=== PATIENT | female | born 1940 | race Caucasian/White ===

== ENCOUNTER 2025-04-01 13:35 | Inpatient (IN) | payer MEDICARE, OTHER ==
[~2025-04-01] VITALS: Ht 170.2 cm; Wt 99.3 kg
[2025-04-01 13:36] VITALS: BP 154/9; TEMP 97.5
[2025-04-01 14:01] VITALS: BP 154/9; TEMP 97.5
[2025-04-01] MEDS ORDERED: ACET325T53 PO (19:06)
[2025-04-01] MEDS ORDERED: APIX5TAB PO (19:06)
[2025-04-01] MEDS ORDERED: ATOR10TA PO (19:07)
[2025-04-01] MEDS ORDERED: ASPI-1169 PO (19:07)
[2025-04-01] MEDS ORDERED: CARV6.252 PO (19:08)
[2025-04-01] MEDS ORDERED: INSU100V28 SQ (19:09)
[2025-04-01] MEDS ORDERED: MAG355OR18 PO (19:10)
[2025-04-01] MEDS ORDERED: MAGN400O6 PO (19:10)
[2025-04-01] MEDS ORDERED: PANT40TA49 PO (19:11)
[2025-04-01] MEDS ORDERED: Z-GUARD TOP (19:11)
[2025-04-01] MEDS ORDERED: MAGNESIUM HYDROXIDE 30 ML LIQUID UDC PO PRN (19:30)
[2025-04-01] MEDS ORDERED: MAG HYDROX/AL HYDROX/SIMETH 30 ML LIQUID UDC PO PRN (19:30)
[2025-04-01] MEDS ORDERED: Medication Not On Formulary EA ([Z-Guard] 1 APPLIC) TOP PRN (19:30)
[2025-04-01] MEDS ORDERED: ACETAMINOPHEN 325 MG TABLET-SA PATIENTS-PAIN ONLY PO PRN (19:30)
[2025-04-01 20:00] LABS: PLATELET COUNT (AUTO) 373 K/uL (179-408); RED BLOOD CELL COUNT(AUTO) 4.49 MIL/uL (3.63-4.92); RED CELL DISTRIBUTION WIDTH 15.2 % (12.3-17.7); WHITE BLOOD COUNT (AUTO) 9.4 K/uL (3.8-11.8)
[2025-04-01 20:27] LABS: CREATININE 1.0 mg/dL (0.6-1.3); SODIUM SERUM 139 mmol/L (136-145); UREA NITROGEN, BLOOD 23 mg/dL (7-18)
[2025-04-01 20:33] LABS: ASPARTATE AMINOTRANSFERASE 13 U/L (15-37); TOTAL PROTEIN, SERUM 6.3 g/dL (6.4-8.2)
[2025-04-01 20:58] VITALS: BP 137/83; TEMP 98.1; O2SAT 93
[2025-04-01] MEDS: ATORVASTATIN 10 MG TABLET PO SCH (21:00)
[2025-04-01] MEDS: CARVEDILOL 6.25 MG TABLET PO SCH (21:00)
[2025-04-02] MEDS: ACETAMINOPHEN 325 MG TABLET PO PRN (04:37)
[2025-04-02] MEDS ORDERED: REMEDY ESSENTIAL ZINC PASTE 113 GM TP PRN (06:30)
[2025-04-02 06:33] VITALS: BP 115/58; TEMP 97.8; O2SAT 92
[2025-04-02] MEDS: PANTOPRAZOLE SODIUM 40 MG TABLET.DR PO SCH (09:45)
[2025-04-02] MEDS: ASPIRIN 81 MG TAB.CHEW PO SCH (09:46)
[2025-04-02] MEDS: APIXABAN 5 MG TABLET PO SCH (09:49)
[2025-04-02] MEDS ORDERED: FERR-56 PO (10:47)
[2025-04-02] MEDS ORDERED: DONE10TA44 PO (10:47)
[2025-04-02] MEDS ORDERED: SITA1TAB2 PO (10:47)
[2025-04-02] MEDS ORDERED: DAPA10TA PO (10:47)
[2025-04-02] MEDS ORDERED: MISCELLANEOUS MED XX PRN (11:15)
[2025-04-02] MEDS: FERROUS SULFATE 325 MG TABEC PO SCH (12:08)
[2025-04-02] MEDS: DAPAGLIFLOZIN PROPANEDIOL 10 MG TABLET PO SCH (12:08)
[2025-04-02] MEDS: DONEPEZIL 10 MG TABLET PO SCH (12:08)
[2025-04-02 16:00] VITALS: BP 130/66; TEMP 97.6; O2SAT 98
[2025-04-02 20:11] VITALS: BP 109/58; TEMP 97.7; O2SAT 95
[2025-04-03 00:41] VITALS: O2SAT 97
[2025-04-03 06:19] VITALS: BP 120/68; TEMP 98.1; O2SAT 95
[2025-04-03 07:25] VITALS: BP 150/68; TEMP 97.8; O2SAT 97
[2025-04-03 16:00] VITALS: BP 146/82; TEMP 97.2; O2SAT 97
== END 2025-04-03 19:30 | disposition home health service (06) | DRG 947 ==
LOC: UNDODISIN 04-03 19:30
PROVIDERS: ADMIT Physical Medicine & Rehabilitation Pain Medicine; ATTEND Physical Medicine & Rehabilitation Pain Medicine
DX: R53.1 Weakness (principal); I21.A1 Myocardial infarction type 2; D68.59 Other primary thrombophilia; I11.0 Hypertensive heart disease with heart failure; E11.9 Type 2 diabetes mellitus without complications; E66.9 Obesity, unspecified; Z68.34 Body mass index [BMI] 34.0-34.9, adult; Z86.73 Personal history of transient ischemic attack (TIA), and cerebral infarction without residual deficits; G90.89 Other disorders of autonomic nervous system; I48.91 Unspecified atrial fibrillation; I50.9 Heart failure, unspecified; K40.90 Unilateral inguinal hernia, without obstruction or gangrene, not specified as recurrent; Z91.81 History of falling; Z79.01 Long term (current) use of anticoagulants; M79.621 Pain in right upper arm; S80.811D Abrasion, right lower leg, subsequent encounter; X58.XXXD Exposure to other specified factors, subsequent encounter; R10.9 Unspecified abdominal pain
CPT/HCPCS: 36415; 85025; 97535-GO-CO